=== PATIENT | female | born 1935 | race Caucasian/White ===

== ENCOUNTER 2016-11-15 21:18 | Inpatient (IN) | payer MEDICARE, BC ==
[~2016-11-15] VITALS: Ht 167.6 cm; Wt 63.0 kg
[2016-11-15] MEDS ORDERED: ETOMIDATE 20 MG/10 ML VIAL IV ONE ×2 (21:30→22:30)
--- NOTE | 2016-11-15 21:30 | NUR ---
VONDA speaking with Dr. Aguiar (patient's primary ortho on-call).
[2016-11-15] MEDS ORDERED: ETOMIDATE 20 MG/10 ML VIAL ONE (21:53)
[2016-11-15] MEDS ORDERED: RIVA10TA PO (22:06)
[2016-11-15] MEDS ORDERED: HYDROCODON-ACETAMINOPHEN 5-325 (22:06)
[2016-11-15] MEDS ORDERED: LISI10TA5 PO (22:06)
--- NOTE | 2016-11-15 22:20 | NUR ---
Began conscious sedation with ALEXANDRU Huynh. Respiratory at bedside, consent signed.
--- NOTE | 2016-11-15 22:34 | NUR ---
Conscious sedation completed, consent and moderate sedation record filed in chart.
[2016-11-15] MEDS ORDERED: IV NORMAL SALINE 500 ML IV ONE (22:41)
[2016-11-15] MEDS ORDERED: PIPERACILLIN SODIUM/TAZOBACTAM 3.375 G in IV DEXTROSE 5% 50 ML IV ONE (22:45)
[2016-11-15] MEDS ORDERED: IV NORMAL SALINE 1000 ML BAG IV ONE (22:45)
[2016-11-15] MEDS ORDERED: VANCOMYCIN IV 1,000 MG in IV DEXTROSE 5% 250 ML IV ONE (22:45)
--- NOTE | 2016-11-15 22:45 | NUR ---
VONDA speaking with Dr. Aguiar, post reduction attempt.
--- NOTE | 2016-11-15 22:50 | NUR ---
VONDA speaking with Dr. Young (ORTHO)
[2016-11-15 23:07] LABS: BASOPHILS # (AUTO) 0.1 K/uL (0.0-8.0); EOSINOPHILS # (AUTO) 0.2 K/uL (0.0-0.7); EOSINOPHILS % (AUTO) 1.7 % (0.0-7.0); HEMATOCRIT 33.6 % (37-47); HEMOGLOBIN 10.9 G/DL (12.0-16.0); LYMPHOCYTES # (AUTO) 1.1 K/UL (0.8-4.8); LYMPHOCYTES % (AUTO) 8.7 % (20.5-51.5); MEAN CORPUSCULAR HEMOGLOBIN 30.4 UUG (27.0-31.0); MEAN CORPUSCULAR HGB CONC 33 g/dL (32.0-37.0); MEAN CORPUSCULAR VOLUME 93.5 FL (81.0-99.0); MONOCYTES # (AUTO) 0.7 K/UL (0.1-1.30); MONOCYTES % (AUTO) 5.4 % (0.0-11.0); NEUTROPHILS # (AUTO) 10.4 K/UL (1.8-8.9); NEUTROPHILS % (AUTO) 83.2 % (38.5-71.5); PLATELET COUNT (AUTO) 410 K/UL (150-450); WHITE BLOOD COUNT (AUTO) 12.5 K/UL (4.0-11.2)
[2016-11-15] MEDS ORDERED: ONDANSETRON IV *ER 4 MG/2 ML VIAL IV ONE ×2 (23:15→23:45)
[2016-11-15] MEDS ORDERED: HYDROMORPHONE 1 MG/1 ML DISP.SYRIN IV ONE ×2 (23:15→23:45)
[2016-11-15] MEDS ORDERED: HYDROMORPHONE 2 MG/1 ML DISP.SYRIN ONE ×2 (23:19→23:55)
[2016-11-15] MEDS ORDERED: ONDANSETRON 4 MG/2 ML VIAL ONE ×2 (23:19→23:55)
[2016-11-15 23:22] LABS: ALANINE AMINOTRANSFERASE 25 U/L (14-59); ALKALINE PHOSPHATASE 82 U/L (50-136); ASPARTATE AMINOTRANSFERASE 27 U/L (15-37); BILIRUBIN,DIRECT 0.1 mg/dL (0.0-0.2); BILIRUBIN,TOTAL 0.3 mg/dL (0.2-1.0); CARBON DIOXIDE 23 mmol/L (21-32); CHLORIDE 104 mmol/L (98-107); CREATININE 0.8 mg/dL (0.6-1.3); GLUCOSE 95 mg/dL (74-106); POTASSIUM 3.9 mmol/L (3.5-5.1); TOTAL PROTEIN, SERUM 7.3 g/dL (6.4-8.2); UREA NITROGEN, BLOOD 25 mg/dL (7-18)
--- NOTE | 2016-11-15 23:22 | NUR ---
Pt. admitted to [facility], under care of Dr. Powell Belongs List completed
[2016-11-15 23:45] VITALS: BP 157/66
[2016-11-15] MEDS: ONDANSETRON 4 MG/2 ML VIAL IV PRN (23:51)
--- NOTE | 2016-11-15 23:55 | NUR ---
PT RECEIVED FROM ED, VIA [employer]. DAUGHTER AT BEDSIDE. ORIENTED TO ROOM. A/OX4. ABLE TO MAKE NEEDS KNOWN. V/S STABLE. IN ACUTE DISTRESS. NO C/O AT THIS TIME. SAFETY MEASURES IMPLEMENTED. CALL LIGHT WITHIN REACH.
[2016-11-16] MEDS ORDERED: HYDROCODONE/APAP 5-325MG TABLET PO PRN (00:30)
[2016-11-16] MEDS ORDERED: ACETAMINOPHEN 325 MG TABLET PO PRN (00:45)
[2016-11-16] MEDS ORDERED: ENOXAPARIN SODIUM 40 MG/0.4 ML DISP.SYRIN SQ SCH (00:45)
[2016-11-16] MEDS ORDERED: MAGNESIUM HYDROXIDE 30 ML LIQUID UDC PO PRN (00:45)
[2016-11-16] MEDS ORDERED: HYDROMORPHONE 1 MG/1 ML DISP.SYRIN IV PRN (00:45)
[2016-11-16] MEDS ORDERED: Z GUARD REMEDY PASTE 57 GM TUBE TOP PRN (00:45)
[2016-11-16] MEDS ORDERED: ONDANSETRON 4 MG/2 ML VIAL IV PRN (00:45)
[2016-11-16] MEDS ORDERED: ENOXAPARIN SODIUM 40 MG/0.4 ML DISP.SYRIN SQ ONE (01:59)
[2016-11-16 04:00] VITALS: BP 118/50
[2016-11-16] MEDS ORDERED: HYDROMORPHONE 2 MG/1 ML DISP.SYRIN ONE (04:09)
--- NOTE | 2016-11-16 06:25 | NUR ---
END OF SHIFT NOTES. PT SLEPT INTERMITTENTLY THROUGHOUT SHIFT. IN STABLE CONDITION. PAIN MANAGED. PAIN MEDICATION ADMINISTERED ORDERED. CONSENT SIGNED. PT NPO. HOA PATENT. NEEDS ATTENDED. SAFETY MAINTAINED. CALL LIGHT WITHIN REACH.
[2016-11-16 07:33] LABS: *BILIRUBIN,URIN NEGATIVE (NEGATIVE); *BLOOD, URINE Trace-intact (NEGATIVE); *CLARITY,URINE CLEAR (CLEAR); *COLOR,URINE YELLOW (YELLOW); *KETONES,URINE NEGATIVE (NEGATIVE); *PROTEIN,URINE NEGATIVE (NEGATIVE); *UROBILINOGEN,URINE 0.2 E.U./dl (NORMAL); LEUKOCYTE ESTERASE ,URINE NEGATIVE (NEGATIVE); NITRITE, URINE NEGATIVE (NEGATIVE); PH,URINE 5.5 (5.0-8.0); UGLUCOSE NEGATIVE (NEGATIVE)
[2016-11-16 07:43] LABS: *AMPHETAMINE, URINE NEGATIVE (NEGATIVE); *BARBITURATE, URINE NEGATIVE (NEGATIVE); *CANNABINOID, URINE NEGATIVE (NEGATIVE); *COCCAINE, URINE NEGATIVE (NEGATIVE); *OPIATE, URINE POSITIVE (NEGATIVE); *PHENCYCLIDINE SCREEN,URINE NEGATIVE (NEGATIVE)
[2016-11-16 07:52] LABS: WBC,URINE 0-3 /HPF (0-3)
[2016-11-16 07:54] LABS: BACTERIA,URINE NONE SEEN /HPF (NONE SEEN); SQUAMOUS EPITHELIAL CELL,UR FEW /HPF (NONE SEEN)
[2016-11-16] MEDS ORDERED: HYDROMORPHONE HCL 2 MG TABLET PO PRN (08:30)
[2016-11-16] MEDS ORDERED: HYDROMORPHONE 2 MG/1 ML DISP.SYRIN IV PRN (08:30)
[2016-11-16] MEDS: LISINOPRIL 10 MG TABLET PO SCH (08:45)
[2016-11-16] MEDS: ONDANSETRON 4 MG/2 ML VIAL IV PRN (08:49)
[2016-11-16] MEDS ORDERED: RIVAROXABAN 10 MG TABLET PO SCH (09:00)
[2016-11-16] MEDS ORDERED: FENTANYL CITRATE 100 MCG/2 ML AMPUL ONE (11:05)
[2016-11-16] MEDS ORDERED: IV NORMAL SALINE 1000 ML BAG IV ONE (12:42)
[2016-11-16] MEDS ORDERED: LIDOCAINE HCL 1% 20 ML VIAL MC ONE (12:42)
[2016-11-16] MEDS ORDERED: PROPOFOL 200 MG/20 ML BOTTLE IV ONE (12:42)
[2016-11-16] MEDS ORDERED: SEVOFLURANE 250 ML BOTTLE IH ONE (12:42)
[2016-11-16] MEDS ORDERED: IV LACTATED RINGERS SOLUTION 1,000 ML BAG IV ONE (12:42)
[2016-11-16] MEDS ORDERED: EPHEDRINE SULFATE 50 MG/ML AMPUL MC ONE (12:42)
[2016-11-16 12:59] VITALS: BP 131/68
--- NOTE | 2016-11-16 13:24 | NUR ---
called #[phone] fax#[phone] for the brace for pt. Per the format proofreader we need to fax over order, Face Sheet, and purchasing order# from [facility] purchasing department. Purchasing department is closed, called Nursing security supervisor "Will work on it".
[2016-11-16] MEDS ORDERED: IV NS 1000 ML 1,000 ML IV PRN (13:45)
[2016-11-16 16:14] VITALS: BP 100/58
--- NOTE | 2016-11-16 16:37 | NUR ---
HEP LOCK THE PT, PER ORDER. PT IS ABLE TO TOLERATE ORAL INTAKE WNL.
[2016-11-16 19:00] VITALS: BP 112/52
--- NOTE | 2016-11-16 19:08 | NUR ---
PT IS LAYING IN BED COMFORTABLY. NO S/S OF RESPIRATORY DISTRESS NOTED. NO PAIN NOTED. ALL SAFETY NEEDS ARE MET. IV INTACT/PATENT. INCENTIVE SPIROMETER IS ENCOURAGED, SHOWED THE PT HOW TO USE, PT WAS ABLE TO PERFORM INCENTIVE SPIROMETRY EXERCISES. DVT PUMPS ON. HEELS OFFLOADED PER DR'S ORDER. PT IS ON NC AT 2L.
--- NOTE | 2016-11-16 19:40 | NUR ---
PT RECEIVED IN BED ASLEEP. A/OX4. V/S STABLE. NO ACUTE DISTRESS NOTED. NO C/O PAIN AT THIS TIME. PT ON 2L NC. O2SAT WNL. PT HAS ABDUCTION PILLOW, BILATERAL OFFLOADING, AND DVT PUMPS IN PLACE. IV SITE INTACT/PATENT. PT ENCOURAGED TO USE INCENTIVE SPIROMETER. SAFETY MEASURES IMPLEMENTED. CALL LIGHT WITHIN REACH.
[2016-11-16] MEDS: ENOXAPARIN SODIUM 40 MG/0.4 ML DISP.SYRIN SQ SCH (21:29)
[2016-11-16] MEDS: ZOLPIDEM 5 MG TABLET PO PRN (21:39)
[2016-11-17] MEDS ORDERED: HYDROCODONE/APAP 5-325MG TABLET PO PRN (00:30)
[2016-11-17 04:00] VITALS: BP 139/63
--- NOTE | 2016-11-17 06:31 | NUR ---
END OF SHIFT NOTES. PT SLEPT WELL THROUGHOUT SHIFT. IN STABLE CONDITION. NO C/O PAIN THROUGHOUT SHIFT. BILATERAL LEGS OFFLOADING WITH BOOTS. DVT PUMP ON. ABDUCTOR PILLOW IN PLACE. IV INTACT/PATENT. NEEDS ATTENDED. SAFETY MAINTAINED. CALL LIGHT WITHIN REACH.
[2016-11-17 06:49] LABS: ALANINE AMINOTRANSFERASE 20 U/L (14-59); ALKALINE PHOSPHATASE 72 U/L (50-136); ASPARTATE AMINOTRANSFERASE 21 U/L (15-37); BILIRUBIN,TOTAL 0.6 mg/dL (0.2-1.0); CARBON DIOXIDE 28 mmol/L (21-32); CHLORIDE 104 mmol/L (98-107); CHOLESTEROL 138 mg/dL (<200); CREATININE 0.7 mg/dL (0.6-1.3); GLUCOSE 97 mg/dL (74-106); HDL CHOLESTEROL 42 mg/dL (40-60); PHOSPHOROUS 3.2 mg/dL (2.5-4.9); POTASSIUM 3.9 mmol/L (3.5-5.1); TOTAL PROTEIN, SERUM 6.7 g/dL (6.4-8.2); TRIGLYCERIDES 103 MG/DL (30-150); UREA NITROGEN, BLOOD 13 mg/dL (7-18)
[2016-11-17 06:50] LABS: THYROID STIMULATING HORMONE 0.992 mIU/mL (0.358-3.740)
[2016-11-17 07:03] LABS: BASOPHILS % (AUTO) 0.4 % (0.0-2.0); EOSINOPHILS # (AUTO) 0.5 K/uL (0.0-0.7); EOSINOPHILS % (AUTO) 5.3 % (0.0-7.0); HEMATOCRIT 30.8 % (37-47); HEMOGLOBIN 10.3 G/DL (12.0-16.0); LYMPHOCYTES # (AUTO) 1.4 K/UL (0.8-4.8); LYMPHOCYTES % (AUTO) 14.1 % (20.5-51.5); MEAN CORPUSCULAR HGB CONC 33 g/dL (32.0-37.0); MONOCYTES # (AUTO) 0.8 K/UL (0.1-1.30); MONOCYTES % (AUTO) 8.2 % (0.0-11.0); NEUTROPHILS # (AUTO) 7.2 K/UL (1.8-8.9); PLATELET COUNT (AUTO) 364 K/UL (150-450); RED BLOOD CELL COUNT(AUTO) 3.31 MIL/UL (4.2-5.4); WHITE BLOOD COUNT (AUTO) 9.9 K/UL (4.0-11.2)
[2016-11-17] MEDS ORDERED: HYDROMORPHONE 2 MG/1 ML DISP.SYRIN IV PRN (08:30)
[2016-11-17] MEDS: LISINOPRIL 10 MG TABLET PO SCH (09:13)
[2016-11-17 11:49] VITALS: BP 128/61
[2016-11-17] MEDS: DOCUSATE SODIUM 100 MG CAPSULE PO SCH ×2 (13:36→20:45)
[2016-11-17 15:54] VITALS: BP 104/63
--- NOTE | 2016-11-17 19:30 | NUR ---
RECEIVED PATIENT LAYING COMFORTABLY IN BED. NO ACUTE DISTRESS NOTED. ABDUCTOR PILLOW IN PLACE. GOOD PEDAL PULSES. WILL REVIEW MEDS. WILL GIVE MEDS ORDERED. WILL CONTINUE TO MONITOR. SAFETY INITIATED. CALL LIGHT WITHIN REACH.
[2016-11-17] MEDS: ENOXAPARIN SODIUM 40 MG/0.4 ML DISP.SYRIN SQ SCH (20:46)
[2016-11-17 20:55] VITALS: BP 100/51
--- NOTE | 2016-11-17 22:00 | NUR ---
DR. BARRON CALLED REGARDING PATIENT. ASKED IF BRACE WAS IMPLEMENTED. INFORMED MD THAT BRACE WILL ARRIVE TOMORROW. NO YET IN PLACE.
[2016-11-18] MEDS: ZOLPIDEM 5 MG TABLET PO PRN (00:20)
--- NOTE | 2016-11-18 01:15 | NUR ---
PER PATIENT AND PATIENT DAUGHTER'S REQUEST, PATIENT WANTED HER BLOOD SUGAR CHECKED AGAIN. BS 148.
[2016-11-18 04:00] VITALS: BP 119/77
[2016-11-18] MEDS: DOCUSATE SODIUM 100 MG CAPSULE PO SCH (09:11)
[2016-11-18] MEDS: LISINOPRIL 10 MG TABLET PO SCH (09:11)
[2016-11-18 11:41] VITALS: BP 101/65
[2016-11-18 15:18] VITALS: BP 98/68
--- NOTE | 2016-11-18 16:00 | NUR ---
DISCHARGE NOTE: TRANSPORTED THE PT DOWNSTAIRS TO ACUTE REHAB. NO S//S OF BLEEDING NOTED. ALL BELONGINGS ARE CHECKED. NO S/S OF RESPIRATORY DISTRESS NOTED. ABDUCTOR PILLOW IN BETWEEN OF PT'S LOWER LIMBS. DVT BOOTS ON. PT REMINDED TO USE INCENTIVE SPIROMETER. PER DR. ZAPATA "CONTINUE ALL THE MEDICATIONS AND D/C ALL IV MEDS. PT HAD SPICA BRACE FITTING DURING THE DAY. PT HAD PT EVALUATION, PT HAD XRAY OF LEFT HIP DR'S ORDER. NO PAIN NOTED/REPORTED. ALL SAFETY NEEDS ARE MET. PT IS ALERT AND CALM. CAMARA IS DRAINING YELLOW CLEAR URINE. SPICA BRACE WENT WITH THE PT TO PT'S ROOM.
[2016-11-18] MEDS ORDERED: ACET-2799 PO (18:00)
[2016-11-18] MEDS ORDERED: MAGN400O6 PO (18:00)
[2016-11-18] MEDS ORDERED: ENOX40DI SQ (18:00)
[2016-11-18] MEDS ORDERED: ZOLP5TAB8 PO (18:00)
[2016-11-18] MEDS ORDERED: DOCU-141 PO (18:00)
== END 2016-11-18 15:32 | DRG 559 ==
LOC: ER 21:18 → MED 23:31
PROVIDERS: ADMIT Nurse Practitioner Acute Care; ATTEND Nurse Practitioner Acute Care
PROC: 0SSBXZZ Reposition Left Hip Joint, External Approach (ICD-10-PCS; principal; 2016-11-15)
DX: T84.021A Dislocation of internal left hip prosthesis, initial encounter (principal); S72.112A Displaced fracture of greater trochanter of left femur, initial encounter for closed fracture; E87.2 Acidosis; D63.8 Anemia in other chronic diseases classified elsewhere; I45.10 Unspecified right bundle-branch block; Y83.9 Surgical procedure, unspecified as the cause of abnormal reaction of the patient, or of later complication, without mention of misadventure at the time of the procedure; Y92.009 Unspecified place in unspecified non-institutional (private) residence as the place of occurrence of the external cause; Z79.899 Other long term (current) drug therapy; Y79.2 Prosthetic and other implants, materials and accessory orthopedic devices associated with adverse incidents; Z88.5 Allergy status to narcotic agent; I10 Essential (primary) hypertension; M19.90 Unspecified osteoarthritis, unspecified site
CPT/HCPCS: 36415; 70030-TC; 71010; 72170; 73501; 73502; 73503; 76000; 80307; 83605; 83735; 84100; 84443; 85025; 85730; 93005; A4663; J1170; J1650; J2405; J3010; J3490; J7040

== ENCOUNTER 2016-11-18 16:26 | Inpatient (IN) | payer MEDICARE, BC ==
[~2016-11-18] VITALS: Ht 165.1 cm; Wt 61.2 kg
--- NOTE | 2016-11-18 14:30 | NUR ---
Admitted to acute rehab, accompanied by Isa/ ALEXANDRU and Ani HALL via hospital bed. With Duarte Catheter draining to dark yellow colored urine, leaking. Alert, awake and oriented x4. No complaints of pain or discomfort at the moment, in stable condition. VSS. Surgical dressing changed.
[~2016-11-18 16:26] MED LIST: HYDROCODON-ACETAMINOPHEN 5-325; LISI10TA5 PO; RIVA10TA PO
[2016-11-18] MEDS ORDERED: ACET-2799 PO (18:00)
[2016-11-18] MEDS ORDERED: ENOX40DI SQ (18:00)
[2016-11-18] MEDS ORDERED: DOCU-141 PO (18:00)
[2016-11-18] MEDS ORDERED: ZOLP5TAB8 PO (18:00)
[2016-11-18] MEDS ORDERED: MAGN400O6 PO (18:00)
[2016-11-18] MEDS ORDERED: Z GUARD REMEDY PASTE 57 GM TUBE TOP PRN (18:15)
--- NOTE | 2016-11-18 18:15 | NUR ---
Informed Dr. Sandoval for medical reconciliation and leaking Duarte Catheter. Now new orders at this time.
[2016-11-18] MEDS ORDERED: HYDROCODONE/APAP 5-325MG TABLET PO PRN (18:30)
[2016-11-18] MEDS ORDERED: MAGNESIUM HYDROXIDE 30 ML LIQUID UDC PO PRN (18:30)
[2016-11-18] MEDS ORDERED: ACETAMINOPHEN 325 MG TABLET PO PRN (18:30)
--- NOTE | 2016-11-18 19:12 | NUR ---
Seen and examined by Dr. Aguayo. Gave orders to discontinue Duarte Catheter.
[2016-11-18 20:25] VITALS: BP 93/50
[2016-11-18] MEDS: DOCUSATE SODIUM 100 MG CAPSULE PO SCH (20:33)
[2016-11-18] MEDS: RIVAROXABAN 10 MG TABLET PO SCH (20:35)
[2016-11-18] MEDS ORDERED: ENOXAPARIN SODIUM 40 MG/0.4 ML DISP.SYRIN SQ SCH (21:00)
[2016-11-18] MEDS: ZOLPIDEM 5 MG TABLET PO PRN (22:22)
[2016-11-19] MEDS ORDERED: LISINOPRIL 10 MG TABLET PO SCH (09:00)
[2016-11-19] MEDS ORDERED: RIVAROXABAN 10 MG TABLET PO SCH (09:00)
[2016-11-19 09:06] VITALS: BP 117/75
[2016-11-19] MEDS: DOCUSATE SODIUM 100 MG CAPSULE PO SCH ×2 (09:32→21:08)
--- NOTE | 2016-11-19 12:52 | NUR ---
Bell Maker SW met with patient at [facility] to assess pt needs and provide support. The patient is an 81 year old female who was admitted for functional decline and weakness s/p left hip fracture. The patient was sitting on a chair in her room during the assessment. She was calm, pleasant, and cooperative during the interview. The patient's mood was somewhat depressed and frustrated. The patient stated that her sleep and appetite have been good. Per pt, she lives at home with her [[address] [place] [address]; ]. The patient acknowledged her condition and the need for intervention. The patient stated that she has strong social support from her daughter Raven Mclain , her son Isrrael Eldridge , and her Osiel Eldridge. Social history: The patient stated that she was born and raised in [place]. She stated that she was raised by both of her parents. The patient stated that she attended [employer]. The patient stated that she is and today is her 59th anniversary. The patient has two children (one son and one daughter) and that she has a good relationship with them both. 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 The patient denied any history of abuse or domestic violence. The patient denied any history of drug, alcohol, or tobacco use. The patient stated that she would like to return home where she lives with her upon discharge. She stated that her daughter Raven will be leaving for [facility] this week and that her son Isrrael will be her emergency contact for the time being. SW engaged in active listening and provided supportive counseling during the interview to address patient's depressive symptoms related to her decline in functioning. SW will continue to address issues of loss related to recent hospitalization. SW will encourage compliance with rehab goals. SW will be available as needed.
--- NOTE | 2016-11-19 14:58 | NUR ---
REHAB TEAM CONFERENCE 11/19/16
--- NOTE | 2016-11-19 17:13 | NUR ---
DAILY NOTE C/O CONSTIPAITON DULCOLAX TABS 2 ORDERED PRN QHS
[2016-11-19] MEDS ORDERED: BISACODYL 5 MG TABLET.DR PO PRN (17:15)
[2016-11-19] MEDS: RIVAROXABAN 10 MG TABLET PO SCH (17:57)
[2016-11-19 20:28] VITALS: BP 121/67
[2016-11-19] MEDS: ZOLPIDEM 5 MG TABLET PO PRN (21:08)
--- NOTE | 2016-11-19 22:00 | NUR ---
Alert, pleasant and conversant. Expresses determination to get better and go home to family. Actively participates with care. Denies pain/discomfort. Up ad juan for BRP, wears orthopedic brace with OOB activities. Has abduction pillow with proper limb alignment observed when in bed. Nursing comfort measures and fall/safety measures observed at all times.
--- NOTE | 2016-11-20 06:00 | NUR ---
Had a restful night; able to sleep with Ambien. Denies pain/discomfort. Nursing comfort measures maintained at all times.
[2016-11-20 08:44] VITALS: BP 139/76
[2016-11-20] MEDS: DOCUSATE SODIUM 100 MG CAPSULE PO SCH ×2 (09:17→21:21)
[2016-11-20] MEDS: RIVAROXABAN 10 MG TABLET PO SCH (18:46)
[2016-11-20 19:52] VITALS: BP 122/59
--- NOTE | 2016-11-20 20:00 | NUR ---
Patient awake no SOB denies chest pain. Vital signs are stable. No pain complaint at this time. Patient walked to the bathroom with a walker, patient denies difficulty in urination.
--- NOTE | 2016-11-20 20:33 | NUR ---
Family in room, no further complaints.
[2016-11-20] MEDS: ZOLPIDEM 5 MG TABLET PO PRN (21:22)
--- NOTE | 2016-11-20 21:24 | NUR ---
Sponge bath provided by CAB SUPERVISOR. Patient ready for bed, Ambien 5mg po given per patient request. Attended w/ all needs. Kept call light within reach.
--- NOTE | 2016-11-21 06:21 | NUR ---
Patient slept well, no acute resp distress.
[2016-11-21 08:00] VITALS: BP 137/65
[2016-11-21] MEDS: DOCUSATE SODIUM 100 MG CAPSULE PO SCH ×2 (10:54→21:41)
[2016-11-21] MEDS ORDERED: ASPI1TAB PO (11:13)
[2016-11-21] MEDS ORDERED: ASPIRIN/ACETAMINOPHEN/CAFFEINE TABLET PO PRN (17:00)
[2016-11-21] MEDS: RIVAROXABAN 10 MG TABLET PO SCH (17:29)
--- NOTE | 2016-11-21 18:05 | NUR ---
PT. OOB WITH LEFT LEG BRACE IN PLACE USING WALKER. WORKING WITH PT/OT WITH GOOD TOLERANCE. GOOD APPETITE. DENIES PAIN. NO ACUTE DISTRESS. SPOUSE AND CAREGIVER AT VISITING WITH PT.. PT. REQUEST PASS FOR TOMORROW TO GO OUT WITH SPOUSE AND CAREGIVER. WILL FOLLOW UP WITH .
--- NOTE | 2016-11-21 19:00 | NUR ---
RECEIVED PATIENT SEATED IN HER ROOM, NO SOB NO CHEST PAIN NOTED, LEFT HIP BRACE IN PLACE, PATIENT WALKS IN THE HALLWAYS WITH THE USE OF WALKER, NO COMPLAIN OF ANY PAIN, CONT TO MONITOR.
[2016-11-21 19:48] VITALS: BP 122/70
[2016-11-21] MEDS: ZOLPIDEM 5 MG TABLET PO PRN (21:41)
--- NOTE | 2016-11-22 06:19 | NUR ---
PATIENT SLEPT MOST OF THE NIGHT, ABDUCTION PILLOW IN PLACE, NO SOB NO CHEST PAIN NOTED, KEPT CLEAN AND DRY.
--- NOTE | 2016-11-22 07:30 | NUR ---
on bed, resting. denies discomfort. talkative , pleasant. anxious to go for her pass.. appetite good.
[2016-11-22 08:00] VITALS: BP 123/68
[2016-11-22] MEDS: DOCUSATE SODIUM 100 MG CAPSULE PO SCH ×2 (09:20→20:17)
--- NOTE | 2016-11-22 13:00 | NUR ---
daughter , clarissa in for 4 hour pass. signed. patient left in stable condition, anxious to go for the pass.
--- NOTE | 2016-11-22 18:10 | NUR ---
received back from out of pass in stable condition. very glad of being out of hospital. no injury obtained while out of pass.
[2016-11-22] MEDS: RIVAROXABAN 10 MG TABLET PO SCH (18:30)
[2016-11-22 19:50] VITALS: BP 124/70
--- NOTE | 2016-11-22 20:00 | NUR ---
Patient alert and oriented x4. Able to make needs known. No acute distress noted. Denies pain. Wears orthopedic brace when out of bed and abduction pillow when in bed. All due meds given and well tolerated. Call light within reach. All needs anticipated. Will continue to monitor.
[2016-11-22] MEDS: ZOLPIDEM 5 MG TABLET PO PRN (20:18)
--- NOTE | 2016-11-23 06:42 | NUR ---
Patient slept well. No acute distress noted. remains free from injury. Denies any pain. Call light within reach. All needs attended
[2016-11-23 07:41] LABS: BASOPHILS # (AUTO) 0.1 K/uL (0.0-8.0); BASOPHILS % (AUTO) 0.7 % (0.0-2.0); EOSINOPHILS # (AUTO) 0.8 K/uL (0.0-0.7); EOSINOPHILS % (AUTO) 10.2 % (0.0-7.0); HEMATOCRIT 30.6 % (37-47); HEMOGLOBIN 10.4 G/DL (12.0-16.0); LYMPHOCYTES # (AUTO) 1.4 K/UL (0.8-4.8); LYMPHOCYTES % (AUTO) 16.9 % (20.5-51.5); MEAN CORPUSCULAR HEMOGLOBIN 31.5 UUG (27.0-31.0); MEAN CORPUSCULAR HGB CONC 34 g/dL (32.0-37.0); MEAN CORPUSCULAR VOLUME 92.2 FL (81.0-99.0); MONOCYTES # (AUTO) 0.7 K/UL (0.1-1.30); MONOCYTES % (AUTO) 7.9 % (0.0-11.0); NEUTROPHILS # (AUTO) 5.3 K/UL (1.8-8.9); NEUTROPHILS % (AUTO) 64.3 % (38.5-71.5); PLATELET COUNT (AUTO) 405 K/UL (150-450); RED BLOOD CELL COUNT(AUTO) 3.32 MIL/UL (4.2-5.4); WHITE BLOOD COUNT (AUTO) 8.3 K/UL (4.0-11.2)
[2016-11-23 08:22] LABS: ALANINE AMINOTRANSFERASE 18 U/L (14-59); ALKALINE PHOSPHATASE 82 U/L (50-136); ASPARTATE AMINOTRANSFERASE 18 U/L (15-37); BILIRUBIN,TOTAL 0.2 mg/dL (0.2-1.0); CARBON DIOXIDE 29 mmol/L (21-32); CHLORIDE 107 mmol/L (98-107); CREATININE 0.7 mg/dL (0.6-1.3); GLUCOSE 94 mg/dL (74-106); PHOSPHOROUS 3.4 mg/dL (2.5-4.9); POTASSIUM 4.4 mmol/L (3.5-5.1); UREA NITROGEN, BLOOD 22 mg/dL (7-18)
[2016-11-23] MEDS: DOCUSATE SODIUM 100 MG CAPSULE PO SCH ×2 (09:09→20:28)
[2016-11-23] MEDS: RIVAROXABAN 10 MG TABLET PO SCH (17:16)
--- NOTE | 2016-11-23 18:34 | NUR ---
pt had no complications during the day. pt seen to be stable on ambulation with walker. pt had brp. pt supervised on transfers. pt did not leave for therapeutic pass today. vitals stable. took meds as prescribed. will endorse new orders to shift superintendent caustic cresylate nurse.
--- NOTE | 2016-11-23 19:30 | NUR ---
Received patient sitting on chair at bedside. Alert and verbally responsive. Able to make needs known. Denies any pain and discomfort. No acute distress. No SOB. Ambulates to bathroom with walker. Tolerated well. Brace to left hip is on. Kept clean and dry. All needs attended to promptly. Call light within reach. Will continue to monitor.
[2016-11-23 20:27] VITALS: BP 124/65
[2016-11-23] MEDS: ZOLPIDEM 5 MG TABLET PO PRN (20:34)
--- NOTE | 2016-11-24 06:44 | NUR ---
Patient comfortably throughout the night. Denies any pain and discomfort. No acute distress noted. Remains free from injury. All needs attended to promptly. Call light within reach. Will continue to monitor.
[2016-11-24 07:15] VITALS: BP 123/69
[2016-11-24] MEDS: DOCUSATE SODIUM 100 MG CAPSULE PO SCH ×2 (09:00→20:39)
[2016-11-24] MEDS: RIVAROXABAN 10 MG TABLET PO SCH (17:14)
--- NOTE | 2016-11-24 19:35 | NUR ---
Pt received in bed, awake. A/O x4. V/S stable. In no acute distress. No c/o at this time. Safety measures implemented. Call light within reach.
[2016-11-24 20:15] VITALS: BP 118/69
[2016-11-24] MEDS: ZOLPIDEM 5 MG TABLET PO PRN (20:40)
--- NOTE | 2016-11-25 06:23 | NUR ---
END OF SHIFT NOTES. PT SLEPT WELL THROUGHOUT SHIFT. IN STABLE CONDITION. ALL NEEDS ATTENDED. SAFETY MAINTAINED. CALL LIGHT WITHIN REACH.
[2016-11-25 07:05] VITALS: BP 122/72
[2016-11-25] MEDS: DOCUSATE SODIUM 100 MG CAPSULE PO SCH ×2 (08:45→21:06)
[2016-11-25] MEDS: RIVAROXABAN 10 MG TABLET PO SCH (17:33)
--- NOTE | 2016-11-25 19:30 | NUR ---
Report received. Patient AAO, sitting up in chair. NAD noted. Addendum: 11/26/16 at 0500 by JOANNA TRISTAN RN Amended: Links added.
[2016-11-25 20:24] VITALS: BP 135/79
--- NOTE | 2016-11-25 21:05 | NUR ---
Tai given per patient's request. Able to make needs known. Addendum: 11/26/16 at 0502 by JOANNA TRISTAN RN Amended: Links added.
[2016-11-25] MEDS: ZOLPIDEM 5 MG TABLET PO PRN (21:08)
--- NOTE | 2016-11-26 07:05 | NUR ---
Slept well during the night. Report to am shift.
[2016-11-26] MEDS: DOCUSATE SODIUM 100 MG CAPSULE PO SCH ×2 (08:22→21:42)
[2016-11-26 08:24] VITALS: BP 134/75
--- NOTE | 2016-11-26 14:18 | NUR ---
Rehab Team Conference 11/26/16
[2016-11-26] MEDS: RIVAROXABAN 10 MG TABLET PO SCH (17:18)
--- NOTE | 2016-11-26 18:30 | NUR ---
Pt very independent. Pt aware of her THR precautions and implemented. Pt excited to go home. Call light is within reach.
[2016-11-26 19:55] VITALS: BP 126/71
--- NOTE | 2016-11-26 20:00 | NUR ---
RECEIVED PATIENT AWAKE IN BED. A/O X4. DENIES PAIN OR DISCOMFORT AT THIS TIME. NO RESP. DISTRESS NOTED. PATIENT IS EAGER TO GO HOME IN THE AM. VSS. STERI-STRIPS NOTED TO LEFT HIP. CLEAN, DRY AND INTACT. CALL LIGHT IN REACH. ALL NEEDS ATTENDED. WILL CONTINUE TO MONITOR.
[2016-11-26] MEDS: ZOLPIDEM 5 MG TABLET PO PRN (21:42)
--- NOTE | 2016-11-26 22:00 | NUR ---
PICTURES TAKEN AND PLACED IN CHART.
--- NOTE | 2016-11-27 06:53 | NUR ---
PATIENT ASLEEP IN BED. SLEPT WELL THROUGHOUT THE NIGHT. CALL LIGHT IN REACH. ALL NEEDS ATTENDED. WILL CONTINUE TO MONITOR.
[2016-11-27] MEDS: DOCUSATE SODIUM 100 MG CAPSULE PO SCH (08:30)
[2016-11-27 08:33] VITALS: BP 126/85
--- NOTE | 2016-11-27 15:06 | NUR ---
pt discharged at 1430. pt provided copies of discharge summary along with instructions. pt given exitcare instructiosn for easy to read hip dislocation, fall prevention and smoking cessation. pt verbalizes follow up physician. pt took belongings home and home med recon done. pt vitals stable upon discharge. HR 83 RR 18 )2 sat 96 Bp 116/74. belongings form signed. pt assisted to the private car with help of md do resident urgent care. pt left with no injuries.
== END 2016-11-27 14:30 | disposition home health service (06) | DRG 949 ==
PROVIDERS: ADMIT Physical Medicine & Rehabilitation Pain Medicine; ATTEND Physical Medicine & Rehabilitation Pain Medicine
DX: T84.021D Dislocation of internal left hip prosthesis, subsequent encounter (principal); E87.2 Acidosis; D63.8 Anemia in other chronic diseases classified elsewhere; I45.10 Unspecified right bundle-branch block; S72.112D Displaced fracture of greater trochanter of left femur, subsequent encounter for closed fracture with routine healing; X58.XXXD Exposure to other specified factors, subsequent encounter; I10 Essential (primary) hypertension; R26.9 Unspecified abnormalities of gait and mobility; Z96.642 Presence of left artificial hip joint; M19.90 Unspecified osteoarthritis, unspecified site
CPT/HCPCS: 36415; 83735; 84100; 85025; 92610; 97110; 97112; 97116; 97165; 97530; 97535; J1650

== ENCOUNTER 2016-12-09 13:07 | Inpatient (IN) | payer MEDICARE, BC ==
[~2016-12-09] VITALS: Ht 165.1 cm; Wt 60.3 kg
[~2016-12-09 13:07] MED LIST changes: +ACET-2799 PO; +ASPI1TAB PO; +DOCU-141 PO; +ENOX40DI SQ; +MAGN400O6 PO; +ZOLP5TAB8 PO
--- NOTE | 2016-12-09 13:59 | NUR ---
Call placed to ORTHO, VONDA Mercado spoke with him regarding recurring LEFT hip dislocation.
--- NOTE | 2016-12-09 14:18 | NUR ---
VONDA spoke to on-call Dr. Alma OMALLEY
--- NOTE | 2016-12-09 14:26 | NUR ---
PT SIGNED CONSENT FOR CLOSED REDUCTION OF LT HIP.
--- NOTE | 2016-12-09 14:55 | NUR ---
PLACED PT ON CONTINEOUS MONITOR FOR CONXOUS SEDATION. PLEASE SEE MODERATE SEDATION FOR MORE INFO.
--- NOTE | 2016-12-09 15:48 | NUR ---
PT AWAKE A/O X3, VSS. SPEAKING WITH FAMILT AT THE BEDSIDE.
--- NOTE | 2016-12-09 15:54 | NUR ---
PT BEEN NPO SINCE 8 AM.
[2016-12-09 16:56] LABS: BASOPHILS % (AUTO) 0.2 % (0.0-2.0); EOSINOPHILS # (AUTO) 0.1 K/uL (0.0-0.7); EOSINOPHILS % (AUTO) 0.6 % (0.0-7.0); HEMOGLOBIN 11.4 G/DL (12.0-16.0); LYMPHOCYTES # (AUTO) 0.8 K/UL (0.8-4.8); LYMPHOCYTES % (AUTO) 9.2 % (20.5-51.5); MEAN CORPUSCULAR HGB CONC 33 g/dL (32.0-37.0); MEAN CORPUSCULAR VOLUME 92.2 FL (81.0-99.0); MONOCYTES # (AUTO) 0.4 K/UL (0.1-1.30); MONOCYTES % (AUTO) 4.1 % (0.0-11.0); NEUTROPHILS # (AUTO) 7.7 K/UL (1.8-8.9); NEUTROPHILS % (AUTO) 85.9 % (38.5-71.5); PLATELET COUNT (AUTO) 252 K/UL (150-450); RED BLOOD CELL COUNT(AUTO) 3.79 MIL/UL (4.2-5.4)
[2016-12-09 17:22] LABS: CARBON DIOXIDE 27 mmol/L (21-32); CHLORIDE 110 mmol/L (98-107); CREATININE 0.7 mg/dL (0.6-1.3); GLUCOSE 105 mg/dL (74-106); UREA NITROGEN, BLOOD 15 mg/dL (7-18)
[2016-12-09 17:29] LABS: BAND % (MANUAL) 4 % (0-10); LYMPHOCYTES % (MANUAL) 11 % (20-40); MONOCYTES % (MANUAL) 3 % (2-10); NEUTROPHILS % (MANUAL) 82 % (42-75)
[2016-12-09 17:32] LABS: ALANINE AMINOTRANSFERASE 19 U/L (14-59); ALKALINE PHOSPHATASE 85 U/L (50-136); ASPARTATE AMINOTRANSFERASE 21 U/L (15-37); BILIRUBIN,DIRECT 0.1 mg/dL (0.0-0.2); BILIRUBIN,TOTAL 0.4 mg/dL (0.2-1.0)
--- NOTE | 2016-12-09 17:34 | NUR ---
RECEIVED FROM ER AWAKE ALERT AND ORIENTED, WITH LEFT HIP BRACE PER NAVEEN, FAMILY HERE WITH HER, ON ROOM AIR, NO SHORTNESS OF BREATH NOTED, SAT AT 98%, ROUTINE ADMISSION CARE DONE
[2016-12-09 17:40] VITALS: BP 125/76
--- NOTE | 2016-12-09 18:15 | NUR ---
kept npo, unable to give urine specimen right now, family at bedside
--- NOTE | 2016-12-09 18:35 | NUR ---
REPORT GIVEN TO OR CREW- SPOKE TO PT, TAKEN PER BED, DAUGHTER WITH PT
--- NOTE | 2016-12-09 20:57 | NUR ---
PATIENT REFUSED PEPSID IV. WILL CONTINUE TO MONITOR.
[2016-12-09 20:58] VITALS: BP 164/80
--- NOTE | 2016-12-09 20:58 | NUR ---
RECEIVED PATIENT FROM ER VIA HOSPITAL BED. WITH NURSE SPENSER AND CK AT BEDSIDE. ABDUCTOR IN PLACED. A&O X'S 4. NO ACUTE DISTRESS NOTED. NO C/O PAIN. SAFETY INITIATED. CALL LIGHT WITHIN REACH. WILL REVIEW NEW ORDERS AND WILL GIVE MEDS ORDERED. WILL CONTINUE TO MONITOR.
[2016-12-09 22:00] LABS: *BILIRUBIN,URIN NEGATIVE (NEGATIVE); *BLOOD, URINE 1+ (NEGATIVE); *CLARITY,URINE CLOUDY (CLEAR); *COLOR,URINE LIGHT YELLOW (YELLOW); *KETONES,URINE 1+ (NEGATIVE); *PROTEIN,URINE NEGATIVE (NEGATIVE); *UROBILINOGEN,URINE 0.2 E.U./dl (NORMAL); LEUKOCYTE ESTERASE ,URINE 3+ (NEGATIVE); NITRITE, URINE NEGATIVE (NEGATIVE); UGLUCOSE NEGATIVE (NEGATIVE)
--- NOTE | 2016-12-09 22:00 | NUR ---
RAFAEL SIDHU AND I DID OUR ROUNDING, PATIENT REFUSED TO BE TURNED AND REPOSITION. "I AM COMFORTABLE THE WAY I AM, I DO NOT WANT TO BE MOVED, I JUST WANT SOME SLEEP". WILL CONTINUE TO MONITOR.
[2016-12-09 22:22] LABS: BACTERIA,URINE MANY /HPF (NONE SEEN); SQUAMOUS EPITHELIAL CELL,UR MANY /HPF (NONE SEEN); WBC,URINE 80-100 /HPF (0-3)
[2016-12-10] VITALS: BP 120/70
[2016-12-10 04:00] VITALS: BP 133/71
[2016-12-10 06:34] LABS: BASOPHILS % (AUTO) 0.5 % (0.0-2.0); EOSINOPHILS # (AUTO) 0.4 K/uL (0.0-0.7); EOSINOPHILS % (AUTO) 4.8 % (0.0-7.0); HEMATOCRIT 31.9 % (37-47); HEMOGLOBIN 10.6 G/DL (12.0-16.0); LYMPHOCYTES # (AUTO) 1.1 K/UL (0.8-4.8); LYMPHOCYTES % (AUTO) 13.9 % (20.5-51.5); MEAN CORPUSCULAR HEMOGLOBIN 30.5 UUG (27.0-31.0); MEAN CORPUSCULAR HGB CONC 33 g/dL (32.0-37.0); MEAN CORPUSCULAR VOLUME 92.1 FL (81.0-99.0); MONOCYTES # (AUTO) 0.7 K/UL (0.1-1.30); MONOCYTES % (AUTO) 8.2 % (0.0-11.0); NEUTROPHILS # (AUTO) 5.9 K/UL (1.8-8.9); NEUTROPHILS % (AUTO) 72.6 % (38.5-71.5); PLATELET COUNT (AUTO) 251 K/UL (150-450); RED BLOOD CELL COUNT(AUTO) 3.46 MIL/UL (4.2-5.4); WHITE BLOOD COUNT (AUTO) 8.1 K/UL (4.0-11.2)
[2016-12-10 06:38] LABS: ALANINE AMINOTRANSFERASE 17 U/L (14-59); ALKALINE PHOSPHATASE 75 U/L (50-136); ASPARTATE AMINOTRANSFERASE 19 U/L (15-37); BILIRUBIN,TOTAL 0.4 mg/dL (0.2-1.0); CARBON DIOXIDE 31 mmol/L (21-32); CHLORIDE 108 mmol/L (98-107); CREATININE 0.7 mg/dL (0.6-1.3); GLUCOSE 107 mg/dL (74-106); MAGNESIUM 1.8 mg/dL (1.8-2.4); PHOSPHOROUS 3.2 mg/dL (2.5-4.9); TOTAL PROTEIN, SERUM 6.3 g/dL (6.4-8.2); UREA NITROGEN, BLOOD 13 mg/dL (7-18)
--- NOTE | 2016-12-10 06:54 | NUR ---
PATIENT SLEPT INTERMITTENTLY T/O SHIFT. NO ACUTE DISTRESS NOTED. NO C/O PAIN. ABDUCTOR IN PLACE. INCENTIVE KRAIG BY BEDSIDE. SAFETY AND COMFORT MAINTAINED T/O SHIFT. VSS. ALL MEDS GIVEN ORDERED. WILL CONTINUE TO MONITOR.
--- NOTE | 2016-12-10 08:00 | NUR ---
awake, oriented, states wanted to go home today, unable to sleep last nite due to IV pump beeping, IV site on the left AC- no swelling/redness noted on site, refusing to have IVF infusing- d/cd, abduction pillow in place, good circulation noted on lower extremities, denies of pain, refused IV pepcid- states doesn't need it, call light within reach
--- NOTE | 2016-12-10 09:00 | NUR ---
Iv abx given- informed has UTI and side effects of medications given, verbalized understanding.
[2016-12-10 09:17] LABS: IRON, SERUM 24 ug/dL (50-175)
--- NOTE | 2016-12-10 09:45 | NUR ---
ambulated by PT in [address]- see PT notes
[2016-12-10 11:26] VITALS: BP 131/68
--- NOTE | 2016-12-10 13:00 | NUR ---
offered to reposition to side but refused-
--- NOTE | 2016-12-10 14:45 | NUR ---
female visitor at bedside, pt states "orthopedic Md told me yesterday that I can go home today- explained that she's on IV abx for UTI and medical MD will be the one to give the d/c order-
[2016-12-10 15:48] VITALS: BP 123/78
--- NOTE | 2016-12-10 17:00 | NUR ---
charge nurse spoke to her re issue on d/c
--- NOTE | 2016-12-10 18:08 | NUR ---
resting in bed, denies of pain, no distress noted- offered to help her turn to her side but stated she can manage, she knows how to do it and been doing it at home, needs attended, call light within reach
--- NOTE | 2016-12-10 19:30 | NUR ---
RECEIVED PATIENT LAYING COMFORTABLY IN BED. NO ACUTE DISTRESS NOTED. A&O X 4. SKIN INTACT. DRESSING ON THE LEFT HIP C/D/I. IV ON THE R FA PATENT AND INTACT. ABDUCTOR PILLOW IN PLACE. ENCOURAGED INCENTIVE SPIROMETER. ENCOURAGED TURN AND REPOSITION. SAFETY INITIATED. CALL LIGHT WITHIN REACH. WILL CONTINUE TO MONITOR.
[2016-12-10 20:40] VITALS: BP 127/70
[2016-12-11 05:26] VITALS: BP 144/88
--- NOTE | 2016-12-11 06:29 | NUR ---
PATIENT SLEPT INTERMITTENTLY T/O SHIFT. NO ACUTE DISTRESS NOTED. SAFETY AND COMFORT MEASURES MAINTAINED T/O SHIFT. ABDUCTOR PILLOW IN PLACE. CAMARA IS PLACE. PATIENT REFUSED TO BE MOVED DESPITE EXPLAINING IN DETAILS THE IMPORTANCE OF TURNING AND REPOSITIONING. VSS. ALL NEEDS MET.
[2016-12-11 06:59] LABS: CARBON DIOXIDE 28 mmol/L (21-32); CHLORIDE 109 mmol/L (98-107); CREATININE 0.6 mg/dL (0.6-1.3); GLUCOSE 95 mg/dL (74-106); MAGNESIUM 1.8 mg/dL (1.8-2.4); PHOSPHOROUS 3.4 mg/dL (2.5-4.9); POTASSIUM 3.6 mmol/L (3.5-5.1); UREA NITROGEN, BLOOD 9 mg/dL (7-18)
[2016-12-11 07:09] LABS: BASOPHILS % (AUTO) 0.5 % (0.0-2.0); EOSINOPHILS # (AUTO) 0.7 K/uL (0.0-0.7); EOSINOPHILS % (AUTO) 9.3 % (0.0-7.0); HEMATOCRIT 33.6 % (37-47); HEMOGLOBIN 11.1 G/DL (12.0-16.0); LYMPHOCYTES # (AUTO) 1.4 K/UL (0.8-4.8); LYMPHOCYTES % (AUTO) 18.9 % (20.5-51.5); MEAN CORPUSCULAR HEMOGLOBIN 30.9 UUG (27.0-31.0); MEAN CORPUSCULAR HGB CONC 33 g/dL (32.0-37.0); MEAN CORPUSCULAR VOLUME 93.3 FL (81.0-99.0); MONOCYTES # (AUTO) 0.7 K/UL (0.1-1.30); MONOCYTES % (AUTO) 9.4 % (0.0-11.0); NEUTROPHILS # (AUTO) 4.4 K/UL (1.8-8.9); NEUTROPHILS % (AUTO) 61.9 % (38.5-71.5); PLATELET COUNT (AUTO) 224 K/UL (150-450); WHITE BLOOD COUNT (AUTO) 7.2 K/UL (4.0-11.2)
--- NOTE | 2016-12-11 07:47 | NUR ---
RECEIVED PATIENT LAYING COMFORTABLY IN BED. NO ACUTE DISTRESS NOTED. A&O X 4. SKIN INTACT. DRESSING ON THE LEFT HIP C/D/I. IV ON THE R FA PATENT AND INTACT. ABDUCTOR PILLOW IN PLACE. SAFETY INITIATED. CALL LIGHT WITHIN REACH. WILL CONTINUE TO MONITOR.
--- NOTE | 2016-12-11 09:45 | NUR ---
D/C FOLLY CATHETER PER MD ORDERS.PT TOLERATED THE PROCEDURE WELL.
[2016-12-11 11:37] VITALS: BP 148/87
[2016-12-11] MEDS ORDERED: SULF1TAB48 PO (11:39)
[2016-12-11] MEDS ORDERED: ACID1TAB4 PO (11:39)
[2016-12-11] MEDS ORDERED: FERR324T PO (11:39)
--- NOTE | 2016-12-11 12:21 | NUR ---
D/C ORDERS RECEIVED NOTED AND CARRIED OUT.D/C HEPLOCK PER MD ORDERS.PT LEFT THE FACILITY VIA PRIVATE CAR WITH HER IN STABLE CONDITION.
== END 2016-12-11 12:25 | disposition home health service (06) | DRG 560 ==
LOC: ER 13:08 → MED 17:01
PROVIDERS: ADMIT Internal Medicine; ATTEND Internal Medicine
PROC: 0SWSXJZ Revision of Synthetic Substitute in Left Hip Joint, Femoral Surface, External Approach (ICD-10-PCS; 2016-12-09)
PROC: 0SWSXJZ Revision of Synthetic Substitute in Left Hip Joint, Femoral Surface, External Approach (ICD-10-PCS; principal; 2016-12-09 19:18)
DX: T84.021A Dislocation of internal left hip prosthesis, initial encounter (principal); E87.0 Hyperosmolality and hypernatremia; I11.9 Hypertensive heart disease without heart failure; N39.0 Urinary tract infection, site not specified; D63.8 Anemia in other chronic diseases classified elsewhere; M47.896 Other spondylosis, lumbar region; M81.0 Age-related osteoporosis without current pathological fracture; Y79.2 Prosthetic and other implants, materials and accessory orthopedic devices associated with adverse incidents; Z96.641 Presence of right artificial hip joint; S72.115D Nondisplaced fracture of greater trochanter of left femur, subsequent encounter for closed fracture with routine healing; X58.XXXD Exposure to other specified factors, subsequent encounter; D50.9 Iron deficiency anemia, unspecified; I45.10 Unspecified right bundle-branch block; Z79.899 Other long term (current) drug therapy
CPT/HCPCS: 36415; 70030-TC; 71010; 72170; 73503; 76000; 83550; 83735; 84100; 85025; 85730; 87077; 87086; 93005; A4663; J0696; J1170; J2405; J3010; J3490; J7030; J7040; J7060